=== PATIENT | female | born 1955 | race Caucasian/White ===

== ENCOUNTER → 2016-08-29 | Outpatient (CLI) | payer BC ==
--- NOTE | 2016-08-29 11:10 | US ---
EXAMINATION TYPE: US abdomen complete DATE OF EXAM: 08/29/2016 7:18 AM COMPARISON: NONE CLINICAL HISTORY: epigastric pain EXAM MEASUREMENTS: Liver Length: 14.8 cm Gallbladder Wall: 0.1 cm CBD: 0.2 cm Spleen: 6.7 cm Right Kidney: 9.7 x 3.2 x 4.2 cm Left Kidney: 9.3 x 3.9 x 5.2 cm ANATOMY: Pancreas: heterogenous, not well seen in its entirety Liver: wnl Gallbladder: wnl Evidence for sonographic Loza's sign: no CBD: wnl Spleen: wnl Right Kidney: wnl Left Kidney: wnl Upper IVC: wnl Abd Aorta: wnl The liver is homogenous. The intrahepatic portion of the IVC and proximal abdominal aorta are within normal limits. There is no evidence of cholelithiasis. Common bile duct is unremarkable. The splee n is unremarkable. Kidneys are symmetric and free of hydronephrosis. No renal lesions are seen. IMPRESSION: No abnormality evident. Normal Values: Liver Length: < 16cm wnl, 17-18cm upper limits, >18cm enlarged Spleen Length = < 13cm Renal Length = 9 - 12cm GB Wall: < 0.3cm CBD: < 0.6cm or < 1.0cm post cholecystectomy
== END | disposition home or self-care (01) ==
LOC: RADUSWWP 06:50
PROVIDERS: ATTEND Family Medicine
DX: K50.90 Crohn's disease, unspecified, without complications (principal)
CPT/HCPCS: 76700

== ENCOUNTER → 2017-02-22 | Outpatient (CLI) | payer BC | END | disposition home or self-care (01) | LOC: LABWHC1 15:50 | PROVIDERS: ATTEND Otolaryngology | DX: R53.83 Other fatigue (principal); E04.1 Nontoxic single thyroid nodule | CPT/HCPCS: 36415; 84439; 84443; 86376 ==

== ENCOUNTER → 2017-03-01 | Outpatient (CLI) | payer BC ==
--- NOTE | 2017-03-02 07:28 | US ---
EXAMINATION TYPE: US thyroid st tissue head/neck DATE OF EXAM: 03/01/2017 COMPARISON: US June 19, 2013 CLINICAL HISTORY: E04.1 Thyroid Nodule. Patient stated takes thyroid medication. GLAND SIZE: Right Lobe: 5.9 x 1.7 x 1.9 cm Overall Parenchyma: heterogenous Left Lobe: 4.5 x 1.2 x 1.0 cm Overall Parenchyma: heterogeneous Isthmus Thickness: 0.3 cm NODULES RIGHT: # of nodules measured on right: none, although nodular gland and borders are noted throughou t with particular hypoechoic nondiscrete border to lateral lower lobe LEFT: # of nodules measured on left: none, heterogeneous appearance to borders and gland ISTHMUS: # of nodules measured in the isthmus: 0 Bilateral neck scanned, no evidence of lymphadenopathy. IMPRESSION: There remains markedly heterogeneous thyroid gland with asymmetric right thyroid enlargement but no d efinitive greater than 1 cm solid or cystic nodule. No significant change from prior.
== END | disposition home or self-care (01) ==
LOC: RADUSWWP 16:26
PROVIDERS: ATTEND Otolaryngology
DX: E04.9 Nontoxic goiter, unspecified (principal); E07.89 Other specified disorders of thyroid
CPT/HCPCS: 76536

== ENCOUNTER → 2017-06-04 | Outpatient (CLI) | payer BC ==
--- NOTE | 2017-06-04 17:57 | WWHP ---
[facility] - HISTORY AND PHYSICAL CHIEF COMPLAINT: The patient is here for her routine gynecologic exam and mammogram. HPI: This is a 61-year-old, G1, P1 with an LMP of 1993, who is status post vaginal hysterectomy with anterior repair for benign reasons. She also is status post bilateral salpingo-oophorectomy at a later date for benign reasons. The patient is without gynecologic complaints and continues to use hormone replacement therapy prescribed by a Dr. Horner. She uses this for menopausal symptoms. PAST MEDICAL HISTORY: Hypothyroidism and gastroesophageal reflux disease. MEDICATIONS: Nature thyroid 1 grain daily, Byest which contains estradiol and estrone with progesterone 2/100 mg daily, multivitamin 1 daily, vitamin D 500 units daily. ALLERGIES: CEFTIN, KEFLEX, ASPIRIN, STEROIDS. 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 FAMILY HISTORY: Father had CHF and emphysema. Mother had hypertension and Alzheimer disease. SOCIAL HISTORY: She denies tobacco, alcohol, and drug use. 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 REVIEW OF SYSTEMS: She has gained about 18 pounds over the last year. She denies respiratory cardiac problems. GI: She does have occasional gastric reflux. PHYSICAL EXAM: Blood pressure 134/83, height 5 feet 6 inches, weight 164 pounds, temperature 97.8, pulse 72. This is a well-developed, well-nourished, white female, who is alert and oriented x3, in no acute distress. HEENT is within normal limits. NECK: Supple without mass or thyromegaly. CHEST AND LUNGS: Clear to auscultation. HEART: Regular rate and rhythm. Breasts are without mass or discharge. Axillary exam is negative for adenopathy. BACK: Negative for CVA tenderness. ABDOMEN: Soft, nontender, without palpable masses. PELVIC EXAM: External genitalia reveals mild atrophy without lesions. Vagina reveals mild atrophy without lesions. There is no evidence of prolapse. The bimanual exam is negative for mass or tenderness. Rectovaginal exam is negative for mass or tenderness and is negative for occult blood. EXTREMITIES: Nontender. IMPRESSION: 61-year-old menopausal female status post GALE and later BSO done for benign reasons with normal gynecologic exam. PLAN: 1. Pap smears have been discontinued. 2. Self breast examination was discussed. 3. Mammogram will be done today. 4. We have had a long discussion regarding hormone replacement therapy including possible risks including increased risk for breast cancer, heart attack and stroke. We have also discussed the option of using estrogen only, which may decrease the risk for heart attack and breast cancer. I have also recommended that she talk to her doctor about weaning off of HRT altogether. We have discussed alternatives such as vaginal estrogen cream for genital atrophy. If she does discontinue oral HRT. 5. Osteoporosis prevention was discussed. She states she had a normal bone density test in 2016 done through her transportation sales consultant. 6. She will return in 1 year end. MMODL / IJN: [id number] /
--- NOTE | 2017-06-05 13:02 | MM ---
Reason for exam: screening (asymptomatic). Last mammogram was performed 1 year and 2 months ago. History: Patient is postmenopausal. Taking estrogen for 8 years. Physical Findings: A clinical breast exam by your physician is recommended on an annual basis and results should be correlated with mammographic findings. MG Screening Mammo w CAD Bilateral CC and MLO view(s) were taken. Prior study comparison: April 10, 2016, bilateral MG screening mammo w CAD. February 25, 2015, bilateral MG screening mammo w CAD. There are scattered fibroglandular densities. No suspicious abnormality. No significant changes when compared with prior studies. ASSESSMENT: Negative, BI-RAD 1 RECOMMENDATION: Routine screening mammogram of both breasts in 1 year.
== END ==
LOC: WWCWWP 15:12
PROVIDERS: ATTEND Obstetrics & Gynecology
DX: Z12.31 Encounter for screening mammogram for malignant neoplasm of breast (principal)

== ENCOUNTER → 2017-12-24 | Outpatient (CLI) | payer BC ==
--- NOTE | 2017-12-24 18:58 | XR ---
EXAMINATION TYPE: XR sinus DATE OF EXAM: 12/24/2017 COMPARISON: NONE HISTORY: Cough and congestion TECHNIQUE: 4 views FINDINGS: There is mild symmetric mucosal thickening in the maxillary sinuses. The other paranasal si nuses appear fairly well aerated. I see no bony destructive process. Maxilla is intact. Orbital lenny ns are intact. IMPRESSION: Symmetric mild maxillary sinusitis.
--- NOTE | 2017-12-24 19:06 | XR ---
EXAMINATION TYPE: XR chest 2V DATE OF EXAM: 12/24/2017 COMPARISON: 05/18/2013 HISTORY: Cough and congestion TECHNIQUE: Frontal and lateral views of the chest are obtained. FINDINGS: Heart and mediastinum are normal. Lungs are clear. Diaphragm is normal. Bony thorax is int act. IMPRESSION: Normal chest. No change.
== END | disposition home or self-care (01) ==
LOC: RADXRMAIN 18:26
PROVIDERS: ATTEND Allergy & Immunology
DX: J32.0 Chronic maxillary sinusitis (principal); J45.901 Unspecified asthma with (acute) exacerbation
CPT/HCPCS: 70220; 71046

== ENCOUNTER 2018-02-19 13:15 | Emergency (ER) | payer BC ==
[2018-02-19 13:22] VITALS: RESP 18
[2018-02-19] MEDS ORDERED: diphenhydrAMINE 50 MG/ML 1 ML VIAL IVP STA (13:38)
[2018-02-19] MEDS ORDERED: FAMOTIDINE 20 MG/2 ML VIAL IV STA (13:38)
--- NOTE | 2018-02-19 14:08 | ED ---
Allergic Reaction HPI - General Source: patient, EMS, RN notes reviewed, old records reviewed Mode of arrival: EMS Limitations: no limitations <Awilda Torres - Last Filed: 02/19/18 14:22> <Len Fernandes - Last Filed: 02/19/18 15:05> - General Chief complaint: Allergic Reaction Stated complaint: Bee Sting Time Seen by Provider: 02/19/18 13:27 - History of Present Illness Initial Comments: 8-year-old female presents emergency Department chief complaint of ALLERGIC reaction due to a bee sting. Patient has a bee sting on her left elbow. She reports that she has 50 mg of IV Benadryl prior to arrival and IV. Patient was brought via EMS. She reports she felt like her lips are swelling and tingly. Patient has had an EpiPen but she did not fill if she needed to use it. Breathing has been normal. She does report that her tongue feels itchy.Patient denies any recent fever, chills, shortness of breath, chest pain, back pain, abdominal pain, nausea vomiting, numbness or tingling, dysuria or hematuria, constipation or diarrhea, headaches or visual changes, or any other current symptoms (Awilda Torres) - Related Data Home Medications Medication Instructions Recorded Confirmed Thyroid,Pork [[place] Thyroid] 1 tab PO DAILY 02/19/18 02/19/18 Previous Rx's Medication Instructions Recorded Famotidine [Pepcid] 20 mg PO BID #6 tablet 02/19/18 diphenhydrAMINE [Benadryl] 25 mg PO QID PRN #20 capsule 02/19/18 Allergies Allergy/AdvReac Type Severity Reaction Status Date / Time aspirin Allergy Nausea Verified 02/19/18 13:22 bee pollen Allergy Anaphylaxis Verified 02/19/18 13:22 cefuroxime [From Ceftin] Allergy Rash/Hives Verified 02/19/18 13:22 cephalexin [From Keflex] Allergy Unknown Verified 02/19/18 13:22 prednisone Allergy Unknown Verified 02/19/18 13:22 Review of Systems ROS Other: All systems not noted in ROS Statement are negative. <Awilda Torres - Last Filed: 02/19/18 14:22> ROS Other: All systems not noted in ROS Statement are negative. <Len Fernandes - Last Filed: 02/19/18 15:05> ROS Statement: Those systems with pertinent positive or pertinent negative responses have been documented in the HPI. Past Medical History Past Medical History: Thyroid Disorder History of Any Multi-Drug Resistant Organisms: None Reported Past Surgical History: No Surgical Hx Reported Past Psychological History: No Psychological Hx Reported Smoking Status: Never smoker Past Alcohol Use History: None Reported Past Drug Use History: None Reported <Awilda Torres - Last Filed: 02/19/18 14:22> General Exam Limitations: no limitations General appearance: alert, in no apparent distress Head exam: Present: atraumatic, normocephalic, normal inspection Eye exam: Present: normal appearance, PERRL, EOMI. Absent: scleral icterus, conjunctival injection, periorbital swelling ENT exam: Present: normal exam, mucous membranes moist Neck exam: Present: normal inspection. Absent: tenderness, meningismus, lymphadenopathy Respiratory exam: Present: normal lung sounds bilaterally. Absent: respiratory distress, wheezes, rales, rhonchi, stridor Cardiovascular Exam: Present: regular rate, normal rhythm, normal heart sounds. Absent: systolic murmur, diastolic murmur, rubs, gallop, clicks GI/Abdominal exam: Present: soft, normal bowel sounds. Absent: distended, tenderness, guarding, rebound, rigid Extremities exam: Present: normal inspection, full ROM, normal capillary refill , other (Patient has mild erythema over the left elbow. The stairs been removed from the insect sting.). Absent: tenderness, pedal edema, joint swelling, calf tenderness Back exam: Present: normal inspection Neurological exam: Present: alert, oriented X3, CN II-XII intact Psychiatric exam: Present: normal affect, normal mood Skin exam: Present: warm, dry, intact, normal color. Absent: rash <Awilda Torres - Last Filed: 02/19/18 14:22> <Len Fernandes - Last Filed: 02/19/18 15:05> - General Exam Comments Initial Comments: Well-appearing 8-year-old female. Alert and oriented. No acute distress. ( Awilda Torres) Vital Signs 02/19/18 02/19/18 02/19/18 13:18 14:19 14:39 Temperature 99.1 F 99 F Pulse Rate 93 80 82 Respiratory 18 18 18 Rate Blood Pressure 151/72 142/60 146/80 O2 Sat by Pulse 99 98 99 Oximetry Medical Decision Making <Awilda Torres - Last Filed: 02/19/18 14:22> <Len Fernandes - Last Filed: 02/19/18 15:05> - Medical Decision Making 8-year-old female presents emergency Department chief complaint of a bee sting. She was sent in her left elbow 30 minutes prior to arrival. She received 50 mg of IV Benadryl. She reports that she felt like her lips were swelling and felt like her tongue was swelling. Should not give the EpiPen. She reports no difficulty in breathing. Lips appear normal this time. The stair has been removed from the left elbow. She reports that she does not want steroids as she had an abnormal reaction and was hallucinating the last time she received steroids. Patient was given another 20 mg of Benadryl and Pepcid. Monitored in the emergency department. Patient is then monitored for an hour and a half in no signs of angioedema. She reports she is feeling better. No tingling or lips. Will be discharged Benadryl Pepcid. She does not want steroids again. She has a prescription for an EpiPen in her purse that she will get filled, this was written by her compliance advisor. (Awilda Torres) Agree with PA assessment and evaluation. Briefly, patient is a 62-year-old female with past medical history of several ALLERGIES. She was stung by a bee to her left elbow prior to arrival. She complained of some tingling to her perioral area and tongue. She did not report that she felt as though her upper airway was closing. Denies any lightheadedness or shortness of breath. Vital signs upon arrival are within normal limits. Physical examination is benign. No clinical suspicion of anaphylaxis at this time. Patient received Benadryl prior to arrival with improvement of symptoms. I bedside patient reports being asymptomatic. Patient has EpiPen's at home. She is counseled on taking EpiPen if she is exposed to allergens and expenses symptoms like this in the future. She is then told to report directly to the emergency department if she administers herself her EpiPen or if experiences severe ALLERGIC reaction including shortness of breath, wheezing, flushing, lightheadedness or sensation of upper airway closure. Patient given prescription for antihistamine inject medications. Patient refused steroid administration on this visit given that she had adverse reactions in the past. Given that patient is benign appearing and reports no symptoms believe that steroids is not necessary at this time. Patient is understandable and agreeable to disposition. She is advised follow-up with primary care physician upon discharge. Patient has an appointment with ALLERGY immunology for venom testing. She is advised to keep that appointment. (Len Fernandes) Disposition Is patient prescribed a controlled substance at d/c from ED?: No When asked, does pt state using other controlled substances?: No If prescribed controlled substance>3 days was MAPS reviewed?: No If opioid is for acute pain is fill amount 7 days or less?: No If Rx opioid, was Start Talking consent form obtained?: No Time of Disposition: 14:24 <Awilda Torres - Last Filed: 02/19/18 14:22> <Len Fernandes - Last Filed: 02/19/18 15:05> Clinical Impression: Allergic reaction to bee sting Disposition: HOME SELF-CARE Condition: Good Additional Instructions: Patient advised to follow-up with primary care physician and compliance advisor. Take a dose of Benadryl every 4-6 hours and take the Pepcid twice a day. Make sure the epinephrine pen prescription filled. Return to the emergency department if any alarming signs or symptoms occur. Prescriptions: diphenhydrAMINE [Benadryl] 25 mg PO QID PRN #20 capsule PRN Reason: Itching Famotidine [Pepcid] 20 mg PO BID #6 tablet Referrals: Antonio Marques MD [Primary Care Provider] - 1-2 days
[2018-02-19 14:39] VITALS: BP 146/80; PULSE 82; TEMP 99
== END 2018-02-19 14:39 | disposition home or self-care (01) ==
LOC: EC 13:15
DX: T63.441A Toxic effect of venom of bees, accidental (unintentional), initial encounter (principal); E07.9 Disorder of thyroid, unspecified; Z79.899 Other long term (current) drug therapy; Z88.1 Allergy status to other antibiotic agents; Z88.6 Allergy status to analgesic agent; Z88.8 Allergy status to other drugs, medicaments and biological substances; Z91.018 Allergy to other foods
CPT/HCPCS: 99284; 96374; 96375; J1200

== ENCOUNTER → 2018-07-01 | Outpatient (CLI) | payer BC ==
[2018-07-01 16:00] VITALS: BP 151/67; PULSE 73; TEMP 97.1; BMI 26.4
--- NOTE | 2018-07-01 16:42 | P.HPOB ---
History of Present Illness H&P Date: 07/01/18 Chief Complaint: The patient is here for her routine gynecologic exam and mammogram. This is a 62-year-old within LMP of 1993. She is status post vaginal hysterectomy with anterior repair for benign reasons. She had a later BSO for benign reasons. She is without gynecologic complaints. Review of Systems The patient's weight has been stable over the last year. She denies respiratory , cardiac, or G.I. problems. Past Medical History Past Medical History: GERD/Reflux, Thyroid Disorder (Hypothyroid) Additional Past Medical History / Comment(s): Thornton's esophagus. 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 She did have endometriosis in the past. History of Any Multi-Drug Resistant Organisms: None Reported Past Surgical History: No Surgical Hx Reported, Hysterectomy (Vaginal hysterectomy with anterior repair and right ovarian cystectomy in 1998.), Orthopedic Surgery (Knee surgery and elbow surgery.) Additional Past Surgical History / Comment(s): BSO in 2003. Sinus surgery. Colonoscopy 2012(2nd). 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 - Past Family History Father Family Medical History: Congestive Heart Failure (CHF), COPD (Emphysema) Mother Family Medical History: Dementia, Hypertension Medications and Allergies Home Medications Medication Instructions Recorded Confirmed Type Thyroid,Pork [[place] Thyroid] 1 tab PO DAILY 02/19/18 07/01/18 History Allergies Allergy/AdvReac Type Severity Reaction Status Date / Time aspirin Allergy Nausea Verified 07/01/18 15:55 bee pollen Allergy Anaphylaxis Verified 07/01/18 15:55 cefuroxime [From Ceftin] Allergy Rash/Hives Verified 07/01/18 15:55 cephalexin [From Keflex] Allergy Unknown Verified 07/01/18 15:55 prednisone Allergy Unknown Verified 07/01/18 15:55 Exam Vital Signs Temp Pulse BP 07/01/18 15:57 97.1 F L 73 151/67 Intake and Output 07/01/18 07/01/18 07/01/18 06:59 14:59 22:59 Other: Weight 74.389 kg Height 5'6", weight 164 pounds, BMI 26.5. This is a well-developed well-nourished white female who is alert and oriented times 3 in no acute distress. HEENT: Within normal limits. NECK: Supple without mass or thyromegaly. CHEST AND LUNGS: Clear to auscultation. HEART: Regular rate and rhythm. BREASTS: Are without mass or discharge. AXILLARY EXAM: Negative for adenopathy. BACK: Negative for CVA tenderness. ABDOMEN: Soft, nontender, without palpable masses. PELVIC EXAM: External genitalia appears normal with mild atrophy. Vagina appears normal mild atrophy. There is no evidence of prolapse. Bimanual examination is negative for mass or tenderness. RECTAL EXAM: Rectovaginal exam is negative for mass or tenderness and is negative for occult blood. EXTREMITIES: Nontender. IMPRESSION: 1. 62-year-old menopausal female status post vaginal hysterectomy with later BSO done for benign reasons, with normal gynecologic exam. PLAN: 1. Pap smears have been discontinued. 2. Self breast awareness was discussed with the patient. 3. Screening mammogram will be done today. 4. Osteoporosis prevention was discussed. She states she had a normal bone density test done in 2016 by her watch parts inspector. She is no longer seemed watch parts inspector. We will plan on repeating this approximately in 2020. 5. She will return in one year.
--- NOTE | 2018-07-03 10:14 | MM ---
Reason for exam: screening (asymptomatic). Last mammogram was performed 1 year and 1 month ago. History: Patient is postmenopausal. Taking estrogen for 9 years. MG Screening Mammo w CAD Bilateral CC and MLO view(s) were taken. Prior study comparison: June 04, 2017, bilateral MG screening mammo w CAD. April 10, 2016, bilateral MG screening mammo w CAD. There are scattered fibroglandular densities. No significant changes when compared with prior studies. ASSESSMENT: Benign, BI-RAD 2 RECOMMENDATION: Routine screening mammogram of both breasts in 1 year.
== END | disposition home or self-care (01) ==
LOC: WWCWWP 15:43
PROVIDERS: ATTEND Obstetrics & Gynecology
DX: Z12.31 Encounter for screening mammogram for malignant neoplasm of breast (principal)
CPT/HCPCS: 77067

== ENCOUNTER → 2020-02-16 | Outpatient (CLI) | payer BC ==
[2020-02-16 12:55] VITALS: BP 145/80; PULSE 73; RESP 18; TEMP 98.6
--- NOTE | 2020-02-16 13:33 | P.HPOB ---
History of Present Illness H&P Date: 02/16/20 Chief Complaint: The patient is here for her routine gynecologic exam and ma mmogram. This is a 64-year-old with an LMP of 1993. The patient is status post vaginal hysterectomy and anterior repair for benign reasons. She also had a BSO at a later time for benign reasons. The patient is without gynecologic complaints. She states she was prescribed HRT by about 2 years ago. She has been taking this because of difficulty sleeping, night sweats and hot fl ashes. She states always symptoms improved when she started HRT. Review of Systems The patient has gained 20 pounds over the last 2 year. She attributes much of her weight gain to stress eating with stress related to the Covid pandemic. She denies respiratory, cardiac, or G.I. problems. Past Medical History Past Medical History: GERD/Reflux, Thyroid Disorder Additional Past Medical History / Comment(s): Thornton's esophagus. 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 She did have endometriosis in the past. History of Any Multi-Drug Resistant Organisms: None Reported Past Surgical History: No Surgical Hx Reported, Hysterectomy, Orthopedic Surgery Additional Past Surgical History / Comment(s): BSO in 2003. Sinus surgery. Colonoscopy 2012(2nd, next after 10yr)). 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 - Past Family History Father Family Medical History: Congestive Heart Failure (CHF), COPD Mother Family Medical History: Dementia, Hypertension Medications and Allergies Home Medications Medication Instructions Recorded Confirmed Type Thyroid,Pork [[place] Thyroid] 120 mg PO DAILY 02/19/18 02/16/20 History Cholecalciferol [Vitamin D3 (25 1,000 unit PO DAILY 02/16/20 02/16/20 History Mcg = 1000 Iu)] Estradiol/Progesterone [Bijuva 1 1 each PO DAILY 02/16/20 02/16/20 History mg-100 mg Capsule] Multivitamin [Multivitamins Adult 1 tab PO DAILY 02/16/20 02/16/20 History Gummies] Allergies Allergy/AdvReac Type Severity Reaction Status Date / Time aspirin Allergy Nausea Verified 11/13/18 15:55 bee pollen Allergy Anaphylaxis Verified 07/01/18 15:55 cefuroxime [From Ceftin] Allergy Rash/Hives Verified 07/01/18 15:55 cephalexin [From Keflex] Allergy Unknown Verified 07/01/18 15:55 prednisone Allergy Unknown Verified 07/01/18 15:55 Exam Vital Signs Temp Pulse Resp BP Pulse Ox 02/16/20 12:51 98.6 F 73 18 145/80 98 Intake and Output 02/15/20 02/16/20 02/16/20 22:59 06:59 14:59 Other: Weight 83.461 kg Height 5 feet 5-1/2 inches, weight 184 pounds, BMI 30.2. This is a well-developed well-nourished white female who is alert and oriented times 3 in no acute distress. HEENT: Within normal limits. NECK: Supple without mass or thyromegaly. CHEST AND LUNGS: Clear to auscultation. HEART: Regular rate and rhythm. BREASTS: Are without mass or discharge. AXILLARY EXAM: Negative for adenopathy. BACK: Negative for CVA tenderness. ABDOMEN: Soft, nontender, without palpable masses. PELVIC EXAM: External genitalia appears normal with mild atrophy. Vagina appears normal with mild atrophy. There is no evidence of prolapse. Bimanual examination is negative for mass or tenderness. RECTAL EXAM: Rectovaginal exam is negative for mass or tenderness and is negative for occult blood. EXTREMITIES: Nontender. IMPRESSION: 1. 64-year-old menopausal female who is status post vaginal hysterectomy and later BSO for benign reasons, with normal gynecologic exam. 2. Doing well on HRT prescribed by a different health care provider. 3. Mildly elevated blood pressure. PLAN: 1. Pap smears have been discontinued. 2. Self breast awareness was discussed with the patient. 3. Screening mammogram will be done today. 4. I recommended that she check her blood pressure on a regular basis since she does have her own blood pressure cuff. She is to follow-up with Dr. Marques for blood pressure elevations. 5. Osteoporosis prevention was discussed. I have stressed the importance of adequate calcium, vitamin D and regular exercise. Recommended amounts of calcium and vitamin D were also discussed. I recommended repeating bone density testing next year since she states she had a normal one 4 years ago. 6. We have had a discussion regarding combination HRT for menopausal symptoms. This has been prescribed by Dr. Horner. We have discussed possible increased risk for heart attack, stroke, breast cancer, and blood clots with HRT. She understands that some of these risks may be decreased with using low-dose ERT without progesterone. She also understands that progesterone is no longer needed to decrease the risk of uterine cancer since she has had a hysterectomy in the past. She will discuss these things with the prescribing doctor. 7. She was advised to return in one year for her annual well woman exam.
--- NOTE | 2020-02-17 10:02 | MM ---
Reason for exam: screening (asymptomatic). Last mammogram was performed 1 year and 8 months ago. History: Patient is postmenopausal. Taking estrogen for 10 years 8 months. Taking progesterone for 10 years 8 months. Physical Findings: A clinical breast exam by your physician is recommended on an annual basis and results should be correlated with mammographic findings. MG Screening Mammo w CAD Bilateral CC and MLO view(s) were taken. Prior study comparison: July 01, 2018, bilateral MG screening mammo w CAD. June 04, 2017, bilateral MG screening mammo w CAD. There are scattered fibroglandular densities. There is no discrete abnormality. No significant changes when compared with prior studies. ASSESSMENT: Negative, BI-RAD 1 RECOMMENDATION: Routine screening mammogram of both breasts in 1 year.
== END | disposition home or self-care (01) ==
LOC: WWCWWP 12:29
PROVIDERS: ATTEND Obstetrics & Gynecology
DX: Z12.31 Encounter for screening mammogram for malignant neoplasm of breast (principal)
CPT/HCPCS: 77067

== ENCOUNTER 2020-05-09 10:13 | Emergency (ER) | payer BC ==
[2020-05-09] MEDS ORDERED: SODIUM CHLORIDE 0.9% 500 ML 500 ML IV STA (10:34)
[2020-05-09] MEDS ORDERED: MECLIZINE 12.5 MG TAB PO STA (10:34)
[2020-05-09] MEDS ORDERED: METOCLOPRAMIDE 5 MG/ML 2 ML VIAL IVP STA (10:34)
--- NOTE | 2020-05-09 10:39 | ED ---
General Adult HPI - General Chief complaint: Chest Pain Stated complaint: chest pain Time Seen by Provider: 05/09/20 10:17 Source: patient Mode of arrival: wheelchair Limitations: no limitations - History of Present Illness Initial comments: Patient is a 64-year-old female presenting to the emergency Department with complaints of chest tightness as well as dizziness that happened today. Patient states that she has been experiencing dizzy spells for the past week or so when she looks up and tilts her head backwards. Patient states this happened again this morning and she became dizzy, nauseous but she also had some chest tightness. Patient states the chest tightness was a secondary panic, anxiety from the dizziness that she was experiencing. She denies any sharp shooting chest pains, denies radiation, shortness of breath. He denies any chest pain at this time. She denies a recent cough or illness. She denies any falls or trauma to her head. She denies any blurry vision. She states she takes medicine for thyroid, vitamins no other medications. No new medications the past couple weeks. She denies any vomiting, abdominal pain. She denies history of heart disease. She denies any fever, chills. She has no further complaints at this time. Upon arrival to the ER, her vital signs are stable. - Related Data Home Medications Medication Instructions Recorded Confirmed Cholecalciferol [Vitamin D3 (25 1,000 unit PO DAILY 02/16/20 05/09/20 Mcg = 1000 Iu)] Multivitamin [Multivitamins Adult 1 tab PO DAILY 02/16/20 05/09/20 Gummies] Budesonide/Formoterol Fumarate 1 puff INHALATION RT-DAILY 05/09/20 05/09/20 [Symbicort 160-4.5 Mcg Inhaler] Hormone Compound (Unknown) 1 dose PO DAILY@1500 05/09/20 05/09/20 Thyroid,Pork [[facility] Thyroid] 60 mg PO TUTHSA 05/09/20 05/09/20 Thyroid,Pork [[facility] Thyroid] 120 mg PO SUMOWEFR 05/09/20 05/09/20 Allergies Allergy/AdvReac Type Severity Reaction Status Date / Time aspirin Allergy Nausea Verified 05/09/20 12:09 bee pollen Allergy Anaphylaxis Verified 05/09/20 12:09 cefuroxime [From Ceftin] Allergy Rash/Hives Verified 05/09/20 12:09 cephalexin [From Keflex] Allergy Unknown Verified 05/09/20 12:09 morphine Allergy Unknown Verified 05/09/20 12:09 prednisone Allergy Unknown Verified 05/09/20 12:09 Review of Systems ROS Statement: Those systems with pertinent positive or pertinent negative responses have been documented in the HPI. ROS Other: All systems not noted in ROS Statement are negative. Past Medical History Past Medical History: GERD/Reflux, Thyroid Disorder Additional Past Medical History / Comment(s): Thornton's esophagus. 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 She did have endometriosis in the past. History of Any Multi-Drug Resistant Organisms: None Reported Past Surgical History: No Surgical Hx Reported, Hysterectomy, Orthopedic Surgery Additional Past Surgical History / Comment(s): BSO in 2003. Sinus surgery. Colonoscopy 2012(2nd, next after 10yr)). Past Psychological History: No Psychological Hx Reported Smoking Status: Never smoker Past Alcohol Use History: None Reported Past Drug Use History: None Reported - Past Family History Father Family Medical History: Congestive Heart Failure (CHF), COPD Mother Family Medical History: Dementia, Hypertension General Exam - General Exam Comments Initial Comments: GENERAL: Patient is well-developed and well-nourished. Patient is nontoxic and in no acute distress. HEAD: Atraumatic, normocephalic. EYES: Pupils equal round and reactive to light, extraocular movements intact, sclera anicteric, conjunctiva are normal. Eyelids were unremarkable. ENT: TMs normal, nares patent, oropharynx clear without exudates. Moist mucous membranes. NECK: Normal range of motion, supple without lymphadenopathy or JVD. LUNGS: Unlabored respirations. Breath sounds clear to auscultation bilaterally and equal. No wheezes rales or rhonchi. HEART: Regular rate and rhythm without murmurs, rubs or gallops. ABDOMEN: Soft, nontender, normoactive bowel sounds. No guarding, no rebound. No masses appreciated. : Deferred MUSCULOSKELETAL: Normal extremities with adequate strength and normal range of motion, no pitting or edema. No clubbing or cyanosis. NEUROLOGICAL: Patient is alert and oriented x 3. Motor and sensory are also intact. Cranial nerves II through XII grossly intact. Symmetrical smile. Normal speech, normal gait. PSYCH: Normal mood, normal affect. SKIN: Warm, Dry, normal turgor, no rashes or lesions noted. Limitations: no limitations Course Vital Signs 05/09/20 05/09/20 05/09/20 10:14 11:23 12:55 Temperature 97.6 F 98 F Pulse Rate 69 75 60 Respiratory 16 16 18 Rate Blood Pressure 174/81 150/88 136/71 O2 Sat by Pulse 98 99 96 Oximetry EKG Findings - EKG Comments: EKG Findings:: Sinus tachycardia and otherwise normal ECG. No signs of acute ischemia, ventricular rate 106, P on arrival 178, QT 346. Medical Decision Making - Medical Decision Making Patient is 64-year-old female here for intermittent dizziness for the past week as well as an episode of chest tightness that happened today. Her vital signs are stable upon arrival. Her exam is unremarkable, no acute neuro deficits. No chest pain during ER stay. Her EKG is unremarkable, no acute deficits. Her lab work is also unremarkable, troponin is normal. Patient was given some fluids, meclizine and Reglan for her symptoms. She does report improvement in her symptoms. She has not had chest pain during her entire stay here. Patient believes her chest tightness was secondary to panic from the dizziness she has been experiencing. I discussed with patient that her dizziness does sound like vertigo-type symptoms. I recommended continue with meclizine for her vertigo. I did recommend admission for cardiac consult and workup over patient declined this. She states she feels find go home. She will follow up with her PCP. Return parameters were discussed with the patient and she verbalized understanding. Case discussed with Dr. Salas. - Lab Data Result diagrams: 05/09/20 10:40 05/09/20 10:40 Lab Results 05/09/20 05/09/20 05/09/20 Range/Units 10:40 10:40 10:40 WBC 10.0 (3.8-10.6) k/uL RBC 4.67 (3.80-5.40) m/uL Hgb 13.0 (11.4-16.0) gm/dL Hct 40.7 (34.0-46.0) % MCV 87.1 (80.0-100.0) fL MCH 27.9 (25.0-35.0) pg MCHC 32.0 (31.0-37.0) g/dL RDW 12.6 (11.5-15.5) % Plt Count 424 (150-450) k/uL Neutrophils % 69 % Lymphocytes % 22 % Monocytes % 4 % Eosinophils % 2 % Basophils % 0 % Neutrophils # 6.9 (1.3-7.7) k/uL Lymphocytes # 2.2 (1.0-4.8) k/uL Monocytes # 0.4 (0-1.0) k/uL Eosinophils # 0.2 (0-0.7) k/uL Basophils # 0.0 (0-0.2) k/uL PT (9.0-12.0) sec INR (<1.2) APTT (22.0-30.0) sec Sodium 136 L (137-145) mmol/L Potassium 3.8 (3.5-5.1) mmol/L Chloride 102 (98-107) mmol/L Carbon Dioxide 23 (22-30) mmol/L Anion Gap 11 mmol/L BUN 10 (7-17) mg/dL Creatinine 0.76 (0.52-1.04) mg/dL Est GFR (CKD-EPI)AfAm >90 (>60 ml/min/1.73 sqM) Est GFR (CKD-EPI)NonAf 85 (>60 ml/min/1.73 sqM) Glucose 138 H (74-99) mg/dL Calcium 9.3 (8.4-10.2) mg/dL Magnesium 2.0 (1.6-2.3) mg/dL Total Bilirubin 0.5 (0.2-1.3) mg/dL AST 30 (14-36) U/L ALT 23 (4-34) U/L Alkaline Phosphatase 57 (38-126) U/L Troponin I <0.012 (0.000-0.034) ng/mL Total Protein 7.3 (6.3-8.2) g/dL Albumin 4.3 (3.5-5.0) g/dL 05/09/20 Range/Units 10:40 WBC (3.8-10.6) k/uL RBC (3.80-5.40) m/uL Hgb (11.4-16.0) gm/dL Hct (34.0-46.0) % MCV (80.0-100.0) fL MCH (25.0-35.0) pg MCHC (31.0-37.0) g/dL RDW (11.5-15.5) % Plt Count (150-450) k/uL Neutrophils % % Lymphocytes % % Monocytes % % Eosinophils % % Basophils % % Neutrophils # (1.3-7.7) k/uL Lymphocytes # (1.0-4.8) k/uL Monocytes # (0-1.0) k/uL Eosinophils # (0-0.7) k/uL Basophils # (0-0.2) k/uL PT 9.6 (9.0-12.0) sec INR 0.9 (<1.2) APTT 22.3 (22.0-30.0) sec Sodium (137-145) mmol/L Potassium (3.5-5.1) mmol/L Chloride (98-107) mmol/L Carbon Dioxide (22-30) mmol/L Anion Gap mmol/L BUN (7-17) mg/dL Creatinine (0.52-1.04) mg/dL Est GFR (CKD-EPI)AfAm (>60 ml/min/1.73 sqM) Est GFR (CKD-EPI)NonAf (>60 ml/min/1.73 sqM) Glucose (74-99) mg/dL Calcium (8.4-10.2) mg/dL Magnesium (1.6-2.3) mg/dL Total Bilirubin (0.2-1.3) mg/dL AST (14-36) U/L ALT (4-34) U/L Alkaline Phosphatase (38-126) U/L Troponin I (0.000-0.034) ng/mL Total Protein (6.3-8.2) g/dL Albumin (3.5-5.0) g/dL Disposition Clinical Impression: Vertigo, Anxiety, Chest tightness Disposition: HOME SELF-CARE Condition: Stable Instructions (If sedation given, give patient instructions): Vertigo (ED) Additional Instructions: Please return to the Emergency Department if symptoms worsen or any other concerns. May continue with meclizine as discussed for vertigo. Follow up with PCP and/or ENT. Is patient prescribed a controlled substance at d/c from ED?: No Referrals: John Horner DO [Primary Care Provider] - 1-2 days
[2020-05-09 11:00] LABS: Basophils % (A) 0 %; Eosinophils # (A) 0.2 k/uL (0-0.7); Eosinophils % (A) 2 %; HCT 40.7 % (34.0-46.0); Lymphocytes # (A) 2.2 k/uL (1.0-4.8); Lymphocytes % (A) 22 %; MCH 27.9 pg (25.0-35.0); MCV 87.1 fL (80.0-100.0); Mean Platelet Volume 6.9; Monocytes # (A) 0.4 k/uL (0-1.0); Monocytes % (A) 4 %; Neutrophils # (A) 6.9 k/uL (1.3-7.7); Neutrophils % (A) 69 %; Platelet Count 424 k/uL (150-450); RBC 4.67 m/uL (3.80-5.40); RDW 12.6 % (11.5-15.5)
[2020-05-09 11:06] LABS: INR 0.9 (<1.2); Partial Thromboplastin Time 22.3 sec (22.0-30.0); Prothrombin Time 9.6 sec (9.0-12.0)
--- NOTE | 2020-05-09 11:28 | XR ---
EXAMINATION TYPE: XR chest 2V DATE OF EXAM: 05/09/2020 COMPARISON: 12/24/2017 HISTORY: 64-year-old female chest pain, chest tightness TECHNIQUE: PA and lateral views FINDINGS: Heart normal size. Aorta and pulmonary vasculature within normal limits. Nodular density at the media l right base likely a prominent vessel on end. This can be reassessed for follow-up. Strandy atelecta sis left base. Mild hyperinflation. No consolidation or pleural effusion seen. IMPRESSION: 1. Mild hyperinflation may relate to depth of inspiration or underlying emphysema. 2. Some nodularity at the medial right base probably represents a prominent vessel on end rather than a pulmonary nodule. Follow-up radiograph in 6-8 weeks to reassess. 3. Otherwise, no acute process seen.
[2020-05-09 12:02] LABS: ALT 23 U/L (4-34); AST 30 U/L (14-36); African American GFR (CKD) >90 (>60 ml/min/1.73 sqM); Albumin 4.3 g/dL (3.5-5.0); Alkaline Phosphatase 57 U/L (38-126); Anion Gap 11 mmol/L; Blood Urea Nitrogen 10 mg/dL (7-17); Calcium 9.3 mg/dL (8.4-10.2); Carbon Dioxide 23 mmol/L (22-30); Chloride 102 mmol/L (98-107); Glucose 138 mg/dL (74-99); Non-African American GFR(CKD) 85 (>60 ml/min/1.73 sqM); Potassium 3.8 mmol/L (3.5-5.1); Sodium 136 mmol/L (137-145); Total Bilirubin 0.5 mg/dL (0.2-1.3); Total Protein 7.3 g/dL (6.3-8.2)
[2020-05-09 12:56] VITALS: BP 136/71; PULSE 60; RESP 18; TEMP 98
== END 2020-05-09 12:55 | disposition home or self-care (01) ==
LOC: EC 10:13
DX: F41.9 Anxiety disorder, unspecified (principal); R07.89 Other chest pain; R42 Dizziness and giddiness; Z79.51 Long term (current) use of inhaled steroids; Z79.890 Hormone replacement therapy; Z88.6 Allergy status to analgesic agent; Z91.030 Bee allergy status; Z88.1 Allergy status to other antibiotic agents; Z88.5 Allergy status to narcotic agent; Z88.8 Allergy status to other drugs, medicaments and biological substances
CPT/HCPCS: 36415; 80053; 83735; 84484; 85025; 85610; 85730; 71046; 99285; 96374; 96361; J2765

== ENCOUNTER → 2020-07-05 | Outpatient (CLI) | payer BC ==
--- NOTE | 2020-07-05 17:23 | CT ---
EXAMINATION TYPE: CT chest wo con DATE OF EXAM: 07/05/2020 COMPARISON: HISTORY: Abnormal chest xray. CT DLP: 378.8 mGycm. Automated Exposure Control for Dose Reduction was Utilized. TECHNIQUE: CT scan of the thorax is performed without IV contrast. FINDINGS: Mild coronary artery calcifications. LUNGS: The lungs are grossly clear, there is no concerning parenchymal mass or nodule identified. Mil d emphysema in the right lobe as compared to the upper lobes and lower lobes There is no pleural eff usion or pneumothorax seen. The tracheobronchial tree is patent, however the origin of the right mid dle lobe bronchus is narrowed and there is a punctate high attenuation focus present at this level pe rhaps representing calcification. MEDIASTINUM: Lack of IV contrast is noted to limit evaluation for mediastinal and especially hilar ad enopathy. There are no definitive greater than 1 cm hilar or mediastinal lymph nodes. No cardiomega ly or pericardial effusion is seen. OTHER: No additional significant abnormality is seen. IMPRESSION: Lucency in the right middle lobe could possibly be due to the narrowing at the origin of the right middle lobe bronchus, consider pulmonary consult.
== END | disposition home or self-care (01) ==
LOC: RADCTMAIN 15:04
PROVIDERS: ATTEND Allergy & Immunology
DX: J98.4 Other disorders of lung (principal); J45.40 Moderate persistent asthma, uncomplicated
CPT/HCPCS: 71250

== ENCOUNTER → 2021-01-03 | Outpatient (CLI) | payer BC ==
--- NOTE | 2021-01-04 08:31 | CT ---
EXAMINATION TYPE: CT chest wo con DATE OF EXAM: 01/03/2021 COMPARISON: 07/05/2020 HISTORY: 65-year-old female R91.8, f/u nodules TECHNIQUE: Contiguous axial scanning of the chest without IV contrast. Coronal and sagittal reconstru ctions performed. CT DLP: 352.7 mGycm Automated exposure control for dose reduction was used. FINDINGS: Heart normal size without pericardial effusion. Mild LAD coronary artery calcifications are present. Aorta normal caliber with conventional branching anatomy. No thoracic lymphadenopathy by CT size criteria. Redemonstrated punctate calcifications at the takeoff right middle lobe, possible small calcified bro nchial lymph nodes. Similar possible mild narrowing at the origin of the right middle lobe bronchus. No progressively enlarging nodule or mass is identified in this location. There is subtle patchy groundglass change throughout the periphery of the left lung and right upper l jorge a which is new. No pleural effusion. Tiny hiatal hernia. Visualized upper abdomen shows no gross abnormality. Bones: Moderate degenerative disc disease mid thoracic spine. IMPRESSION: 1. NEW SUBTLE PATCHY GROUNDGLASS CHANGES IN THE PERIPHERY OF THE LEFT LUNG AND RIGHT UPPER LUNG. QUER Y ANY INTERVAL EPISODE OF COVID PNEUMONIA. INTERSTITIAL PNEUMONITIS, HYPERSENSITIVITY PNEUMONITIS, AN D ATYPICAL PNEUMONIAS ARE ALSO IN THE DIFFERENTIAL. 2. PUNCTATE CALCIFICATIONS, POSSIBLE CALCIFIED BRONCHIAL LYMPH NODES SUCH IN THE SETTING OF PRIOR GRANULOMATOUS DISEASE REDEMONSTRATED AT THE TAKEOFF OF THE RIGHT MIDDLE LOBE BRONCHUS. SIMILAR POSSIB LE MILD NARROWING AT THE ORIGIN OF THE RIGHT MIDDLE LOBE BRONCHUS. CONSIDER AN ADDITIONAL ONE-YEAR FO LLOW-UP TO REASSESS. NO ENLARGING NODULE OR MASS IS IDENTIFIED.
== END | disposition home or self-care (01) ==
LOC: RADCTMAIN 18:09
PROVIDERS: ATTEND Allergy & Immunology
DX: R91.8 Other nonspecific abnormal finding of lung field (principal)
CPT/HCPCS: 71250

== ENCOUNTER → 2021-05-23 | Outpatient (CLI) | payer BC ==
[2021-05-23 11:15] VITALS: BP 151/81; PULSE 72; RESP 16; TEMP 98.9
--- NOTE | 2021-05-23 11:53 | P.HPOB ---
History of Present Illness H&P Date: 05/23/21 Chief Complaint: The patient is here for her routine gynecologic exam and ma mmogram. This is a 65-year-old with an LMP of 1993. The patient is status post vaginal hysterectomy with anterior repair for benign reasons. She also had a BSO at a later date. This was also benign. The patient is without gynecologic complaints. She has been taking combination HRT through her PCP,Dr. Horner, and she states she is currently trying to wean off of this. Review of Systems The patient has lost 7 pounds over the last year. She denies respiratory, cardiac, or G.I. problems. Past Medical History Past Medical History: GERD/Reflux, Thyroid Disorder Additional Past Medical History / Comment(s): Thornton's esophagus. 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 She did have endometriosis in the past. History of Any Multi-Drug Resistant Organisms: None Reported Past Surgical History: No Surgical Hx Reported, Hysterectomy, Orthopedic Surgery Additional Past Surgical History / Comment(s): BSO in 2003. Sinus surgery. Colonoscopy 2012(2nd, next after 10yr). Past Psychological History: No Psychological Hx Reported Smoking Status: Never smoker Past Alcohol Use History: None Reported Past Drug Use History: None Reported Additional History: She has been since 1977 and is sexually active. She retired in 2020 from a local [employer]. - Past Family History Father Family Medical History: Congestive Heart Failure (CHF), COPD Mother Family Medical History: Dementia, Hypertension Medications and Allergies Home Medications Medication Instructions Recorded Confirmed Type Cholecalciferol [Vitamin D3 (25 1,000 unit PO DAILY 02/16/20 05/23/21 History Mcg = 1000 Iu)] Multivitamin [Multivitamins Adult 1 tab PO DAILY 02/16/20 05/23/21 History Gummies] Budesonide/Formoterol Fumarate 1 puff INHALATION RT-DAILY 05/09/20 05/23/21 History [Symbicort 160-4.5 Mcg Inhaler] Hormone Compound (Unknown) 1 dose PO DAILY@1500 05/09/20 05/23/21 History Thyroid,Pork [[place] Thyroid] 60 mg PO TUTHSA 05/09/20 05/23/21 History Thyroid,Pork [[place] Thyroid] 120 mg PO SUMOWEFR 05/09/20 05/23/21 History Allergies Allergy/AdvReac Type Severity Reaction Status Date / Time aspirin Allergy Nausea Verified 05/23/21 11:08 bee pollen Allergy Anaphylaxis Verified 05/23/21 11:08 cefuroxime [From Ceftin] Allergy Rash/Hives Verified 05/23/21 11:08 cephalexin [From Keflex] Allergy Unknown Verified 05/23/21 11:08 morphine Allergy Unknown Verified 05/23/21 11:08 prednisone Allergy Unknown Verified 05/23/21 11:08 Exam Vital Signs Temp Pulse Resp BP Pulse Ox 05/23/21 11:10 98.9 F 72 16 151/81 99 Intake and Output 05/22/21 05/23/21 05/23/21 22:59 06:59 14:59 Other: Weight 80.286 kg Height 5 feet 6 inches, weight 177 pounds, BMI 28.6. This is a well-developed well-nourished white female who is alert and oriented times 3 in no acute distress. HEENT: Within normal limits. NECK: Supple without mass or thyromegaly. CHEST AND LUNGS: Clear to auscultation. HEART: Regular rate and rhythm. BREASTS: Are without mass or discharge. AXILLARY EXAM: Negative for adenopathy. BACK: Negative for CVA tenderness. ABDOMEN: Soft, nontender, without palpable masses. PELVIC EXAM: External genitalia appears normal with mild atrophy. Vagina appears normal with mild atrophy. There is no evidence of prolapse. Bimanual examination is negative for mass or tenderness. RECTAL EXAM: Rectovaginal exam is negative for mass or tenderness and is negative for occult blood. EXTREMITIES: Nontender. IMPRESSION: 1. 65-year-old menopausal female who is status post vaginal hysterectomy and later BSO for benign reasons, with normal gynecologic exam. 2. The patient is currently weaning off of combination compounded HRT as prescribed through her PCP, Dr. Horner. PLAN: 1. Pap smears have been discontinued. 2. Self breast awareness was discussed with the patient. We have also discussed symptoms associated with inflammatory breast cancer. 3. Screening mammogram will be done today. 4. Osteoporosis prevention was discussed. I have stressed the importance of adequate calcium, vitamin D and regular exercise. Recommended amounts of calcium and vitamin D were also discussed. I have recommended bone density testing since it has been about 5 years since her last one. The order slip was given to the patient for this. 5. I have recommended that she continue to try to wean off of HRT. She will do this under the supervision of her PCP who has been prescribing this. We have pr eviously discussed risks of HRT. 6. She has not received the Covid vaccination, but previously had Covid in October 2020. She has been tested for the antibodies and remains positive. We have discussed how Covid vaccination is often recommended even after having had Covid, but she has discussed this with her other doctors who have recommended against it due to her past medical history and her history of having had Covid, according to the patient. 7. I recommended that she get a flu shot this fall. She typically does not get flu shots. 8. She was advised to return in one year for her annual well woman exam.
--- NOTE | 2021-05-24 07:58 | MM ---
Reason for exam: screening (asymptomatic). Last mammogram was performed 1 year and 3 months ago. History: Patient is postmenopausal. Taking estrogen for 11 years 8 months. Taking progesterone for 11 years 8 months. Physical Findings: A clinical breast exam by your physician is recommended on an annual basis and results should be correlated with mammographic findings. MG Screening Mammo w CAD Bilateral CC and MLO view(s) were taken. Prior study comparison: February 16, 2020, bilateral MG screening mammo w CAD. July 01, 2018, bilateral MG screening mammo w CAD. There are scattered fibroglandular densities. There is chronic nodularity in the right breast. There is no discrete abnormality. ASSESSMENT: Benign, BI-RAD 2 RECOMMENDATION: Routine screening mammogram of both breasts in 1 year.
== END | disposition home or self-care (01) ==
LOC: WWCWWP 11:01
PROVIDERS: ATTEND Obstetrics & Gynecology
DX: Z12.31 Encounter for screening mammogram for malignant neoplasm of breast (principal)
CPT/HCPCS: 77067

== ENCOUNTER → 2021-12-04 | Outpatient (CLI) | payer BC ==
--- NOTE | 2021-12-05 12:26 | BD ---
EXAMINATION TYPE: Axial Bone Density DATE OF EXAM: 12/04/2021 COMPARISON: NONE CLINICAL HISTORY: 66 years year old Female. ICD-10 CODE: Z78.0 POSTMENOPAUSAL STATUS Height: 5 FT 6 IN Weight: 170 FRAX RISK QUESTIONS: Alcohol (3 or more units per day): NO Family History (Parent hip fracture): NO Glucocorticoids (More than 3mos): NO (Ex: prednisone, prednisolone, methylprednisolone, dexamethasone, and hydrocortisone). History of Fracture in Adulthood: YES Secondary Osteoporosis: 1. Type 1 Diabetes: NO 2. Hyperthyroidism: NO 3. Menopause before 45: YES 4. Malnutrition: NO 5. Chronic liver disease: NO Rheumatoid Arthritis: NO Current Tobacco Use: NO RISK FACTORS HISTORY OF: Surgery to Spine/Hip(right/left)/Wrist (right/left): WRIST RIGHT When: LONG AGO Family History of Osteoporosis: NO Active: YES Diet low in dairy products/other sources of calcium: NO Postmenopausal woman: YES Take estrogen and/or progesterone medications: STILL USING FOR LAST TEN YEARS Lost more than 2 inches in height since high school: NO Frequent falls: NO Poor Health: GOOD Hyperparathyroidism: NO Adrenal Insufficiency: NO MEDICATIONS: Thyroid Medications: YES Which medication: ARMOUR THYROID How Long: LONG TIME Additional Medications: HRT, ARMOUR THYROID Additional History: EXAM MEASUREMENTS: Bone mineral densitometry was performed using the [employer] System. Bone mineral density as measured about the Lumbar spine is: ----- L1-L4(G/cm2): 1.241 T Score Values are as follows: ----- L1: 0.3 ----- L2: -0.1 ----- L3: 1.1 ----- L4: 0.5 ----- L1-L4: 0.5 BASELINE Bone mineral density about the R hip (g/cm2): 0.911 Bone mineral density about the L hip (g/cm2): 0.969 T Score values are as follows: -----R Neck: -0.9 -----L Neck: -0.5 -----R Total: -0.8 -----L Total: -0.9 BASELINE FRAX%s: The graph provided illustrates a 7.7 % chance for a major osteoporotic fx and a 0.5 % chance for the hips probability for fx in 10 years time. IMPRESSION: Normal (Values between +1 and -1 indicate normal bone mass). Consider repeating this study in 5 year s or sooner if there is some new clinical indication. NOTE: T-SCORE=SD OF THE YOUNG ADULT MEAN.
--- NOTE | 2021-12-05 16:19 | P.PN ---
Progress Note - Text Progress Note Date: 12/05/21 OUTPATIENT FOLLOW-UP NOTE TEST(S)/RESULTS: Bone density test done on 12/04/2021 was normal. METHOD OF NOTIFICATION: The patient was notified by phone. PATIENT COMMENTS: The patient is happy to hear these results. DIAGNOSIS: Normal bone density test. DISCUSSION: I have stressed the importance of still getting adequate calcium, vitamin D, and regular exercise. PLAN: I recommended she repeat this in 5 years.
== END | disposition home or self-care (01) ==
LOC: RADBDWWP 12:41
PROVIDERS: ATTEND Obstetrics & Gynecology
DX: Z78.0 Asymptomatic menopausal state (principal)
CPT/HCPCS: 77080

== ENCOUNTER → 2022-06-04 | Outpatient (CLI) | payer BC ==
--- NOTE | 2022-06-04 11:08 | FL ---
EXAMINATION TYPE: FL barium swallow DATE OF EXAM: 06/04/2022 10:18 AM COMPARISON: None. CLINICAL INDICATION:Female, 66 years old with history of K21.9 GASTRO ESOPHAGEAL REFLUX; PHH, TECHNIQUE: The procedure was explained and patient history elicited. All patient questions were ans wered prior to start of procedure. Multiple spot fluoroscopic images of the esophagus were obtained a fter the oral ingestion of effervescent crystals and liquid barium as the contrast agent. Fluoroscopic time: 19 seconds Fluoroscopic images: 184 FINDINGS: The esophagus demonstrates normal primary and secondary peristalsis. The esophageal mucosa is smooth without evidence of focal stricture, ulceration, or abnormal outpouching. No gastroesophageal reflu x disease was identified. Multilevel cervical anterior osteophytosis with minimal indentation upon th e upper esophagus. IMPRESSION: Mild gastroesophageal reflux into the distal esophagus.
== END | disposition home or self-care (01) ==
LOC: RADUSWWP 09:45
PROVIDERS: ATTEND Otolaryngology Otolaryngology/Facial Plastic Surgery
DX: K21.9 Gastro-esophageal reflux disease without esophagitis (principal)
CPT/HCPCS: 74220

== ENCOUNTER → 2022-08-07 | Outpatient (CLI) | payer BC ==
--- NOTE | 2022-08-07 13:55 | MM ---
Reason for Exam: Screening (asymptomatic). Last mammogram was performed 1 year(s) and 2 month(s) ago. Patient History: Menarche at age 15. First Full-Term at age 23. Left ovary removed at age 48. Right ovary removed at age 48. Hysterectomy at age 43. Postmenopausal. Currently using Estrogen, for 11 years, 8 months. Currently using Progesterone, for 11 years, 8 months. Risk Values: Jennifer 5 year model risk: 1.4%. NCI Lifetime model risk: 5.8%. Prior Study Comparison: 04/10/2016 Bilateral Screening Mammogram, [facility]. 06/04/2017 Bilateral Screening Mammogram, [facility]. 07/01/2018 Bilateral Screening Mammogram, [facility]. 02/16/2020 Bilateral Screening Mammogram, [facility]. 05/23/2021 Bilateral Screening Mammogram, [facility]. Tissue Density: There are scattered fibroglandular densities. Findings: Analyzed By CAD. There is no suspicious group of microcalcifications or new suspicious mass in either breast. Stable chronic nodularity within the right breast. No significant change from prior exams. Overall Assessment: Benign, BI-RAD 2 Management: Screening Mammogram of both breasts in 1 year. A clinical breast exam by your physician is recommended on an annual basis and results should be correlated with mammographic findings. Electronically signed and approved by: Gama Flores D.O.
== END | disposition home or self-care (01) ==
LOC: RADMAMWWP 10:08
PROVIDERS: ATTEND Obstetrics & Gynecology
DX: Z12.31 Encounter for screening mammogram for malignant neoplasm of breast (principal); Z78.0 Asymptomatic menopausal state
CPT/HCPCS: 77067

== ENCOUNTER → 2022-08-07 | Outpatient (CLI) | payer BC ==
[2022-08-07 10:33] VITALS: BP 135/77; PULSE 70; RESP 16; TEMP 98.5
--- NOTE | 2022-08-07 11:16 | P.HPOB ---
History of Present Illness H&P Date: 08/07/22 Chief Complaint: The patient is here for her routine gynecologic exam and ma mmogram. This is a 66-year-old with an LMP of 1993. The patient is status post vaginal hysterectomy with anterior repair and later BSO all for benign reasons. The patient continues to use combination HRT through Dr. Horner for menopausal symptoms. She is sexually active. Review of Systems She has lost about 8 pounds over the past year. She denies respiratory or cardiac problems. GI: Occasional gastric reflux symptoms. Past Medical History Past Medical History: GERD/Reflux, Thyroid Disorder Additional Past Medical History / Comment(s): Thornton's esophagus. Hypothyroid. 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 She did have endometriosis in the past. History of Any Multi-Drug Resistant Organisms: None Reported Past Surgical History: No Surgical Hx Reported, Hysterectomy, Orthopedic Surgery Additional Past Surgical History / Comment(s): BSO in 2003. Vaginal hysterectomy with anterior repair in 1993. Sinus surgery. Colonoscopy 2012(2nd, next after 10yr). Past Psychological History: No Psychological Hx Reported Smoking Status: Never smoker Past Alcohol Use History: None Reported Past Drug Use History: None Reported Additional History: She has been since 1977 and is sexually active. 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 - Past Family History Father Family Medical History: Congestive Heart Failure (CHF), COPD Mother Family Medical History: Dementia, Hypertension Medications and Allergies Home Medications Medication Instructions Recorded Confirmed Type Cholecalciferol [Vitamin D3 (25 1,000 unit PO DAILY 02/16/20 08/07/22 History Mcg = 1000 Iu)] Multivitamin [Multivitamins Adult 1 tab PO DAILY 02/16/20 08/07/22 History Gummies] Budesonide/Formoterol Fumarate 1 puff INHALATION RT-DAILY 05/09/20 08/07/22 History [Symbicort 160-4.5 Mcg Inhaler] Hormone Compound (Unknown) 1 dose PO DAILY@1500 05/09/20 05/23/21 History Thyroid,Pork [[place] Thyroid] 60 mg PO TUTHSA 05/09/20 08/07/22 History Thyroid,Pork [[place] Thyroid] 120 mg PO SUMOWEFR 05/09/20 08/07/22 History Omeprazole/Sodium Bicarbonate 1 capsule PO DAILY 08/07/22 08/07/22 History [Omeprazole-Bicarb 20-1,100 Cap] Allergies Allergy/AdvReac Type Severity Reaction Status Date / Time aspirin Allergy Nausea Verified 08/07/22 10:26 bee pollen Allergy Anaphylaxis Verified 08/07/22 10:26 cefuroxime [From Ceftin] Allergy Rash/Hives Verified 08/07/22 10:26 cephalexin [From Keflex] Allergy Unknown Verified 08/07/22 10:26 morphine Allergy Unknown Verified 08/07/22 10:26 prednisone Allergy Unknown Verified 08/07/22 10:26 Exam Vital Signs Temp Pulse Resp BP Pulse Ox 08/07/22 10:30 98.5 F 70 16 135/77 99 Intake and Output 08/06/22 08/07/22 08/07/22 22:59 06:59 14:59 Other: Weight 76.657 kg Height 5 feet 6 inches, weight 169 pounds, BMI 27.3. This is a well-developed well-nourished white female who is alert and oriented times 3 in no acute distress. HEENT: Within normal limits. NECK: Supple without mass or thyromegaly. CHEST AND LUNGS: Clear to auscultation. HEART: Regular rate and rhythm. BREASTS: Are without mass or discharge. AXILLARY EXAM: Negative for adenopathy. BACK: Negative for CVA tenderness. ABDOMEN: Soft, nontender, without palpable masses. PELVIC EXAM: External genitalia appears normal with mild atrophy. Vagina appears normal atrophy. There is no evidence of prolapse. Bimanual examination is negative for mass or tenderness. RECTAL EXAM: Rectovaginal exam is negative for mass or tenderness and is negative for occult blood. EXTREMITIES: Nontender. IMPRESSION: 1. 66-year-old menopausal female status post vaginal hysterectomy and later BSO for benign reasons, with normal gynecologic exam. 2. The patient is still on combination HRT as prescribed through her PCP, Dr. Horner. PLAN: 1. Pap smears have been discontinued. 2. Self breast awareness was discussed with the patient. We have also discussed symptoms associated with inflammatory breast cancer. 3. Screening mammogram was done today. 4. Osteoporosis prevention was discussed. I have stressed the importance of adequate calcium, vitamin D and regular exercise. Recommended amounts of calcium and vitamin D were also discussed. She had a normal bone density test done on 12/04/2021. She will repeat this after about 5 years. 5. She will be due for a screening colonoscopy in 2022. She plans to do this through her doctor in [place]. This is the doctor that did her upper endoscopy. 6. We have had a long discussion regarding hormone replacement therapy. I do not feel her progesterone is necessary since she has had a hysterectomy. Progesterone may increase the risk for things such as heart attack and breast cancer. She was made aware of this. We have also discussed how ERT may also increase the risk for stroke and blood clots. I have recommended that she try to wean off of HRT and she will discuss this with her doctor who is prescribing this. 7. She was advised to return in one year for her annual well woman exam.
== END ==
LOC: WWCWWP 10:07
PROVIDERS: ATTEND Obstetrics & Gynecology
DX: Z01.419 Encounter for gynecological examination (general) (routine) without abnormal findings (principal); K21.9 Gastro-esophageal reflux disease without esophagitis; Z90.710 Acquired absence of both cervix and uterus; Z90.722 Acquired absence of ovaries, bilateral; Z79.890 Hormone replacement therapy; Z88.6 Allergy status to analgesic agent; Z88.5 Allergy status to narcotic agent; Z91.030 Bee allergy status; Z88.1 Allergy status to other antibiotic agents; Z88.8 Allergy status to other drugs, medicaments and biological substances

== ENCOUNTER → 2023-11-12 | Outpatient (CLI) | payer MEDICARE ==
[2023-11-12 11:50] VITALS: BP 164/81; PULSE 77; RESP 17; TEMP 97.9
--- NOTE | 2023-11-12 12:20 | P.HPOB ---
History of Present Illness H&P Date: 11/12/23 Chief Complaint: The patient is here for her routine gynecologic exam and ma mmogram. This is a 68-year-old with an LMP of 1993. She is status post vaginal hysterectomy for benign reasons and later had a BSO also for benign reasons. She continues to use combination HRT through . She has been on HRT since her BSO in 2003. She is without gynecologic complaints and is sexually active. Review of Systems The patient has gained 11 pounds over the last year and a half. She denies respiratory, cardiac, or G.I. problems. Past Medical History Past Medical History: GERD/Reflux, Thyroid Disorder Additional Past Medical History / Comment(s): Thornton's esophagus. 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 She did have endometriosis in the past. History of Any Multi-Drug Resistant Organisms: None Reported Past Surgical History: No Surgical Hx Reported, Hysterectomy, Orthopedic Surgery Additional Past Surgical History / Comment(s): BSO in 2003. Sinus surgery. Left shoulder rotator cuff surgery. Colonoscopy 2012(2nd, next after 10yr)). Past Psychological History: No Psychological Hx Reported Smoking Status: Never smoker Past Alcohol Use History: None Reported Past Drug Use History: None Reported Additional History: She has been since 1977 and is sexually active. 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 - Past Family History Father Family Medical History: Congestive Heart Failure (CHF), COPD Mother Family Medical History: Dementia, Hypertension Medications and Allergies Home Medications Medication Instructions Recorded Confirmed Type Cholecalciferol [Vitamin D3 (25 1,000 unit PO DAILY 02/16/20 11/12/23 History Mcg = 1000 Iu)] Multivitamin [Multivitamins Adult 1 tab PO DAILY 02/16/20 11/12/23 History Gummies] Budesonide/Formoterol Fumarate 1 puff INHALATION RT-DAILY 05/09/20 11/12/23 History [Symbicort 160-4.5 Mcg Inhaler] Hormone Compound (Unknown) 1 dose PO DAILY@1500 05/09/20 11/12/23 History Thyroid,Pork [[place] Thyroid] 60 mg PO TUTHSA 05/09/20 11/12/23 History Thyroid,Pork [[place] Thyroid] 120 mg PO SUMOWEFR 05/09/20 11/12/23 History Omeprazole/Sodium Bicarbonate 1 capsule PO DAILY 08/07/22 11/12/23 History [Omeprazole-Bicarb 20-1,100 Cap] Allergies Allergy/AdvReac Type Severity Reaction Status Date / Time aspirin Allergy Nausea Verified 11/12/23 11:15 bee pollen Allergy Anaphylaxis Verified 11/12/23 11:15 cefuroxime [From Ceftin] Allergy Rash/Hives Verified 11/12/23 11:15 cephalexin [From Keflex] Allergy Unknown Verified 11/12/23 11:15 morphine Allergy Unknown Verified 11/12/23 11:15 prednisone Allergy Unknown Verified 11/12/23 11:15 Exam Vital Signs Temp Pulse Resp BP Pulse Ox 11/12/23 11:18 97.9 F 77 17 164/81 100 Intake and Output 11/11/23 11/12/23 11/12/23 22:59 06:59 14:59 Other: Weight 81.647 kg Height 5 feet 6 inches, weight 180 pounds, BMI 29.1. This is a well-developed well-nourished white female who is alert and oriented times 3 in no acute distress. HEENT: Within normal limits. NECK: Supple without mass or thyromegaly. CHEST AND LUNGS: Clear to auscultation. HEART: Regular rate and rhythm. BREASTS: Are without mass or discharge. AXILLARY EXAM: Negative for adenopathy. BACK: Negative for CVA tenderness. ABDOMEN: Soft, nontender, without palpable masses. PELVIC EXAM: External genitalia appears normal with mild atrophy. Vagina appears normal mild atrophy. There is no evidence of prolapse. Bimanual examination is negative for mass or tenderness. RECTAL EXAM: Rectovaginal exam is negative for mass or tenderness and is negative for occult blood. EXTREMITIES: Nontender. IMPRESSION: 1. 68-year-old menopausal female status post vaginal hysterectomy and later BSO for benign reasons, with normal gynecologic exam. 2. The patient continues to use combination hormone replacement therapy for menopausal symptoms as prescribed by a different doctor, Dr. Horner. PLAN: 1. Pap smears have been discontinued. 2. Self breast awareness was discussed with the patient. We have also discussed symptoms associated with inflammatory breast cancer. 3. Screening mammogram was done today. 4. Osteoporosis prevention was discussed. I have stressed the importance of adequate calcium, vitamin D and regular exercise. Recommended amounts of calcium and vitamin D were also discussed. Her last bone density test was in 2021 and we will plan on repeating this approximate 2026. 5. We have had a long discussion regarding hormone replacement therapy. We again have discussed the W MD study findings including increased risk for breast cancer, heart attack, stroke, and blood clots with combination HRT. We have also discussed how estrogen alone did not seem to have the same risks for breast cancer and heart attack. I have recommended that she discuss with the prescribing doctor discontinuing the progesterone as well as weaning off of HRT completely. We have discussed ways of weaning off of this. 6. Her blood pressure was elevated but I did not discuss this with her in the office. I did leave a message on her voicemail indicating that her blood pressure was elevated and that I would like her to follow up with her PCP for blood pressure elevations. I have also recommended that she find a way to check her own blood pressure at home on a regular basis. 7. The patient was advised to return in 1-2 years for her well woman examination.
== END ==
LOC: WWCWWP 10:53
PROVIDERS: ATTEND Obstetrics & Gynecology
DX: Z12.31 Encounter for screening mammogram for malignant neoplasm of breast (principal); Z78.0 Asymptomatic menopausal state; Z90.710 Acquired absence of both cervix and uterus; Z79.890 Hormone replacement therapy; Z88.8 Allergy status to other drugs, medicaments and biological substances; Z91.030 Bee allergy status; Z88.1 Allergy status to other antibiotic agents
CPT/HCPCS: 77067

== ENCOUNTER → 2025-03-09 | Outpatient (CLI) | payer MEDICARE ==
--- NOTE | 2025-03-10 08:26 | MM ---
Reason for Exam: Screening (asymptomatic). Last mammogram was performed 1 year(s) and 4 month(s) ago. Patient History: Menarche at age 15. First Full-Term at age 23. Left ovary removed at age 48. Right ovary removed at age 48. Hysterectomy at age 43. Postmenopausal. Currently using Estrogen, for 11 years, 8 months. Currently using Progesterone, for 11 years, 8 months. Risk Values: Jennifer 5 year model risk: 1.5%. NCI Lifetime model risk: 5.2%. Prior Study Comparison: 05/23/2021 Bilateral Screening Mammogram, [facility]. 08/07/2022 Bilateral MG screening mammo w CAD, [facility]. 11/12/2023 Bilateral MG screening mammo w CAD, [facility]. Tissue Density: The breasts are almost entirely fatty. Findings: Analyzed By CAD. Right breast: There is no suspicious group of microcalcifications or new suspicious mass. Left breast: There is no suspicious group of microcalcifications or new suspicious mass. Overall Assessment: Negative, BI-RAD 1 Management: Screening Mammogram of both breasts in [address] [facility] will attempt to contact patient to return for supplemental views and ultrasound if indicated. Patient should continue monthly self-breast exams. A clinical breast exam by your physician is recommended on an annual basis. This exam should not preclude additional follow-up of suspicious palpable abnormalities. Note on Jennifer scores and lifetime risk: 1. A Jennifer score greater than 3% is considered moderate risk. If this is the case, consider specialist referral to assess eligibility for a risk reducing agent. 2. If overall lifetime risk for the development of breast cancer is 20% or higher, the patient may qualify for future screening with alternating mammogram and breast MRI. [facility], , 03/10/2025 8:22 AM. Electronically signed and approved by: Rah Jalloh DO
== END | disposition home or self-care (01) ==
LOC: RADMAMWWP 14:19
PROVIDERS: ATTEND Family Medicine
DX: Z12.31 Encounter for screening mammogram for malignant neoplasm of breast (principal); R92.313 Mammographic fatty tissue density, bilateral breasts; Z78.0 Asymptomatic menopausal state
CPT/HCPCS: 77067